=== PATIENT | female | born 2005 | race Caucasian/White ===

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

== ENCOUNTER 2023-04-18 11:22 | Outpatient (CLI) | payer OTHER, SELFPAY ==
--- NOTE | ~2023-04-18 | US_ITS ---
EXAMINATION: US breast LT limited HISTORY: Palpable lump at the 2:00 location of the left breast TECHNIQUE: Limited left breast ultrasound was performed. FINDINGS: No suspicious cystic or solid mass is identified in the area of the palpable abnormality of the left breast. IMPRESSION: No specific sonographic correlate is identified for the reported palpable abnormality of concern. Fur ther evaluation at this time should be based on clinical assessment. Continued follow-up physical exa mination is recommended. BI-RADS Category 1: Negative Reviewed, dictated and finalized at location A. IMPRESSION: No specific sonographic correlate is identified for the reported palpable abnor mality of concern. Further evaluation at this time should be based on clinical assessment. Continued follow-up physical examination is recommended. BI-RADS Category 1: Negative
--- NOTE | ~2023-04-18 | US_ITS ---
EXAMINATION: US soft tissue head and neck DATE: 04/18/2023 12:48 INDICATION: Localized enlarged lymph nodes. TECHNIQUE: Grayscale and color Doppler ultrasound images of the head and neck were obtained. COMPARISON: None. FINDINGS: There are normal superficial lymph nodes posterior to right ear. IMPRESSION: 1. Normal lymph nodes posterior to right ear in the patient's area of concern. Reviewed, dictated and finalized at location A.
== END 2023-04-18 11:23 | disposition home or self-care (01) ==
PROVIDERS: PCP Family Medicine Adolescent Medicine; Visit Provider Nurse Practitioner Family
DX: R59.0 Localized enlarged lymph nodes (principal); N63.21 Unspecified lump in the left breast, upper outer quadrant
CPT/HCPCS: 76536; 76642